=== PATIENT | male | born 1960 | race Caucasian/White ===

== ENCOUNTER → 2020-10-25 13:33 | Outpatient (BNVA) | payer OTHER, SELFPAY | PROVIDERS: PCP Internal Medicine; Referring Provider Internal Medicine; Visit Provider Physician Assistant ==

== ENCOUNTER 2022-05-29 15:53 | Outpatient (REF) | payer OTHER, SELFPAY | END 2022-05-29 15:54 | disposition home or self-care (01) | LOC: HO.SH 15:53 | PROVIDERS: Visit Provider Internal Medicine | DX: Z01.118 Encounter for examination of ears and hearing with other abnormal findings (principal); H90.3 Sensorineural hearing loss, bilateral | CPT/HCPCS: 92557 ==

== ENCOUNTER 2023-07-22 16:08 | Outpatient (REF) | payer OTHER, SELFPAY | END 2023-07-22 16:09 | disposition home or self-care (01) | LOC: HO.HHCL 16:08 | PROVIDERS: Visit Provider Internal Medicine | DX: Z13.89 Encounter for screening for other disorder (principal) ==

== ENCOUNTER 2024-04-07 08:07 | Outpatient (REF) | payer OTHER, SELFPAY ==
[2024-04-07 09:07] LABS: Alanine Aminotransferase 33 U/L (0-40); Albumin Level 4.2 g/dL (3.5-5.0); Alkaline Phosphatase 77 U/L (39-117); Anion Gap 10 (12-20); Aspartate Amino Transferase 31 U/L (5-37); Bilirubin Direct < 0.2 mg/dL (0.0-0.5); Bilirubin Total 0.2 mg/dL (0.0-1.0); Blood Urea Nitrogen 12 mg/dL (9-16); Calcium 9.4 mg/dL (8.4-10.2); Carbon Dioxide 27 mmol/L (22-29); Chloride 108 mmol/L (96-108); Cholesterol 212 mg/dL (<200); Estimated Glomerular Filt Rate > 60; Glucose Fasting 114 mg/dL (60-99); HDL Cholesterol 47 mg/dL (>40); LDL Cholesterol Calculated 151 mg/dL (<100); Potassium 5.4 mmol/L (3.3-5.1); Sodium 140 mmol/L (135-145); Total Protein 7.3 g/dL (6.5-8.0); Triglycerides 72 mg/dL (<150)
== END 2024-04-07 08:08 | disposition home or self-care (01) ==
LOC: HO.CHCLDS 08:07
PROVIDERS: Visit Provider Internal Medicine
DX: E78.00 Pure hypercholesterolemia, unspecified (principal); Z13.89 Encounter for screening for other disorder
CPT/HCPCS: 36415; 80048; 80061; 80076; 83090

== ENCOUNTER 2025-05-07 06:10 | Outpatient (REF) | payer OTHER, SELFPAY ==
--- OUTSIDE RECORDS SUMMARY | 2025-05-07 06:12 | XMS_ITS | Encounter Summary ---
Author Organization [employer] Address [address] [facility] [address] [place] [address] Care Team Providers Care Gunner'S Mate M Name Role Phone Zbigniew Adam MD Primary Care Provider [phone] Encounter Details Date Type Department Care Team (Late st Contact Info) Description 04/07/2024 Orders Only [facility]S [address] [place] [phone] Zbigniew Adam MD [address] [place], [place] [phone] Annual physical exam (Primary Dx); Primary hypertension Social History Tobacco Use Types Packs/Day Years Used Date Smoking Tobacco: Never Smokeless Tobacco: Never Alcohol Answer Date Recorded Q1: How often do you have a drink containing alc ohol? 3 04/10/2024 Q2: How many drinks containi ng alcohol do you have on a typical day when you are drinking? 2 04/10/2024 Q3: How often do you have six or more drinks on one occasion? 2 04/10/2024 Depression Answer Date Recorded Patient Health Questionnaire-9 Score 2 04/10/2024 Patient Health Questionnaire-9 Score 2 04/10/2024 Last PHQ-9: Questionnaire Data Not on file 1 06/10/2023 Housing Stability Answer Date Recorded What is your housing situation today? I have cody evans 03/29/[address] you li ve. Do you have problems with any of the following? None of the above 03/29/2023 Food Insecurity Answer Date Recorded Within the past 12 months, y ou worried that your food would run out before you got money to buy more: Never True 03/29/2023 Within the past 12 months,th e food you bought just didn't last and you didn't have enough money to get more: Never True 02/2023 Transportation Answer Date Recorded In the past 12 months, has l ack of transportation kept you from medical appts, meetings, work or from getting things needed for daily living? No 03/29/2023 Utilities Answer Date Recorded In the past 12 months, has t he electric, gas, oil or water company threatened to shut off services in your home? No 03/29/2023 Depression Answer Date Recorded Patient Health Questionnaire-2 Score 0 04/10/2024 Sex and Gender Information Value Date Recorded Sex Assigned at Male 03/19/2022 10:22 AM EDT Legal Sex Male 10:22 AM EDT Gender Identity Choose not to disclose 10:22 AM EDT Sexual Orientation Choose not to disclose 2021 10:22 AM EDT documented as of this encounter Plan of Treatment Scheduled Orders Name Type Priority Associated Diagnoses Orde r Schedule Vitamin D, 25-Hydroxy, Total, Immunoassay Lab Routine Annual physical exam Primary hypertension Expected: 04/07/2024 (Approximate), Expires: 04/07/2025 documented as of this encounter Visit Diagnoses Diagnosis Annual physical exam- Primary Routine general medical examination at a health care facility Primary hypertension Unspecified essential hypertension documented in this encounter Additional Health Concerns Assessment Noted Time PHQ-9 Depression Total Score: 1 04/08/20 23 4:21 PM EST documented as of this encounter Care Teams Gunner'S Mate M Relationship Specialty Start Date End Date Zbigniew Adam MD [address] [place] [id number] PCP - General Internal Medicine 02/26/12 documented as of this encounter
--- OUTSIDE RECORDS SUMMARY | 2025-05-07 06:12 | XMS_ITS | Encounter Summary ---
Author Organization [employer] Address [address] [place] [address] [address] [place] [id number] Care Team Providers Care Book Solicitor Name Role Phone Zbigniew Adam MD Primary Care Provider Encounter Details Date Type Department Care Team ([facility] st Contact Info) Description 08/13/[address] [facility] MED & PEDS [address] [facility] [place] [phone] Chio Krishnan LPN Social History Tobacco Use Types Packs/Day Years Used Date Smoking Tobacco: Never Assessed Sex and Gender Information Value Date Recorded Sex Assigned at Male 03/19/2022 10:22 AM EDT Legal Sex Male 10:22 AM EDT Gender Identity Choose not to disclose 10:22 AM EDT Sexual Orientation Choose not to disclose 2021 10:22 AM EDT documented as of this encounter Plan of Treatment Not on file documented as of this encounter Visit Diagnoses Not on filedocumented in this encounter Care Teams Book Solicitor Relationship Specialty Start Date End Date Zbigniew Adam MD [address] [place] [address] PCP - General Internal Medicine 02/26/12 documented as of this encounter
--- OUTSIDE RECORDS SUMMARY | 2025-05-07 06:12 | XMS_ITS | Clinical Summary ---
Author Organization [employer] Address [address] [facility] 7t [place] [address] Care Team Providers Care Lumber Estimator Name Role Phone Zbigniew Adam MD Primary Care Provider Medications losartan (Cozaar) 100 MG tablet TAKE 1 TABLET(100 MG) BY MOUTH EVERY DAY 90 tablet 3 08/13/2022 Active losartan (Cozaar) 100 MG tablet TAKE 1 TABLET BY MOUTH EVERY DAY 90 tablet 3 10/04/2023 Active losartan (Cozaar) 100 MG tablet TAKE 1 TABLET BY MOUTH EVERY DAY 90 tablet 3 12/01/2024 Active Active Problems Problem Noted Date Diagnosed Date Erectile dysfunction 09/10/2016 04/08/2023 Hypercholesterolemia 09/01/2015 04/08/2023 Hypertensive disorder 09/01/2015 04/08/2023 Family History Medical History Relation Name Comments Heart disease Mother Hypertension Mother Relation Name Status Comments Mother Social History Tobacco Use Types Packs/Day Years Used Date Smoking Tobacco: Never Smokeless Tobacco: Never Tobacco Cessation:Counseling Given: No Alcohol Answer Date Recorded Q1: How often [...] not to disclose 2021 10:22 AM EDT Last Filed Vital Signs Vital Sign Reading Time Taken Comments Blood Pressure 135/88 04/10/2024 2:12 PM EST Pulse 63 04/10/2024 2:12 PM EST Temperature 36.6 C (97.9 F) 04/10/2024 2:12 PM EST Respiratory Rate 20 04/10/2024 2:12 PM EST Oxygen Saturation 93% 04/10/2024 2:12 PM EST Inhaled Oxygen Concentration - - Weight 77.6 kg (171 lb) 04/10/2024 2:12 PM EST Height 172.1 cm (5' 7.75 ) 04/10/2024 2:12 PM ES T Body Mass Index 26.19 04/10/2024 2:12 PM EST Plan of Treatment Health Maintenance Due Date Last Done Comments CT Colonography 1961 Colonoscopy 1961 FIT 1961 HIV Screening 1961 Sigmoidoscopy 1961 Disability Screening 1961 Alcohol/Substance Use Screening 1973 Pneumococcal Vaccine: 50+ Years (1 of 1 - PCV) 12/16/2011 Zoster Vaccines (1 of 2) 12/16/2011 SDOH Screening 03/29/2024 03/29/2023 FOBT 05/02/2024 05/02/2023 COVID-19 Vaccine (1 - 2024-2 6 season) 2025 Influenza Vaccine (#1) 2025 Depression Screening 04/10/2025 04/10/2024, 04/10/2024 Tobacco Screening 04/10/2025 04/10/2024 DTaP/Tdap/Td Vaccines (2 - T d or Tdap) 08/31/2025 09/01/2015 Colorectal Cancer Screening 05/02/2026 FIT DNA/Cologuard 05/02/2026 05/02/2023 Lipid Panel 04/07/2029 04/07/2024, 08/10/2022, 02/20/2021 RSV Patients and Patients Aged 60 years or older (1 - 1-dose 75+ series) 2036 Hepatitis C Screening Completed 08/10/2022 HIB Vaccines Aged Out No longer eligi ble based on patient's age to complete this topic HPV Vaccines Aged Out No longer eligi ble based on patient's age to complete this topic Hepatitis A Vaccines Aged Out No long er eligible based on patient's age to complete this topic Hepatitis B Vaccines Aged Out No long er eligible based on patient's age to complete this topic IPV Vaccines Aged Out No longer eligi ble based on patient's age to complete this topic Meningococcal B Vaccine Aged Out No l onger eligible based on patient's age to complete this topic Meningococcal Vaccine Aged Out No berta shaun eligible based on patient's age to complete this topic RSV under 20 months Aged Out No longe r eligible based on patient's age to complete this topic Rotavirus Vaccines Aged Out No longer eligible based on patient's age to complete this topic Procedures Procedure Name Priority Date/Time Associated Diagnosis Comments LIPID PANEL, STANDARD Routine 04/07/2024 8:45 AM EST LAB COLOGUARD COLON CANCER SCREEN Routine 05/02/2023 12:45 PM EST Screening for colon cancer HEPATITIS C AB W/REFL TO HCV RNA, QN, PCR Routine 08/10/2022 8:32 AM EDT from Last 3 Months or Most Recently Relevant to Health Maintenance Results * (ABNORMAL) Lipid Panel, Standard (04/07/2024 8:45 AM EST) Triglycerides 72 <150 mg/dL [facility] Comment:Desirable Triglyceri de: less than 150 mg/dLBorderline High Triglyceride 150-199 mg/dLHigh Triglyceride: 200-499 mg/dLVery High Triglyceride: greater than or equal to 5OO mg/dL Cholesterol 212(H) <200 mg/dL [facility] Comment:Desirable Cholestero l: less than 200 mg/dLBorderline High Cholesterol: 200-239 mg/dLHigh Cholesterol: greater than 239 mg/dL LDL Cholesterol Calculated 151(H) <100 mg/dL [facility] Comment:Desirable LDL: less than 100 mg/dLNear Optimal/Above Optimal LDL: 110- 129 mg/dLBorderline High LDL: 130-159 mg/dLHigh LDL: 160-189 mg/dLVery High LDL: greater than or equal to 190 mg/dL HDL Cholesterol 47 >40 mg/dL [facility] Comment:Desirable HDL: great er than 40 mg/dL Note: This HDL assay may give artificially low results in patients with liver disease. 04/07/2024 8:45 AM EST 04/07/2024 8:45 AM EST us Zbigniew Adam MD LAB BLOOD ORDERABLES Final Result [facility] [address] [place] [phone] * Cologuard?? colon cancer screening (05/02/2023 12:45 PM EST) Cologuard Result Negative Negative 05/08/20 6:36 PM EST [facility] ([facility]) (CLIA #:[id number]) Comment: NEGATIVE TEST RESULT. A negative Cologuard result indicates a low likelihood that a colorectal cancer (CRC) or advanced adenoma (adenomatous polyps with more advanced pre-malignant features) is present. The chance that a person with a negative Cologuard test has a colorectal cancer is less than 1 in 1500 (negative predictive value >99.9%) or has an advanced adenoma is less than 5.3% (negative predictive value 94.7%). These data are based on a prospective cross-sectional study of 10,000 individuals at average risk for colorectal cancer who were screened with both Cologuard and colonoscopy. (Peng Montez et al, N Engl J Med 2014;370(14):8072-4598) The normal value (reference range) for this assay is negative. COLOGUARD RE-SCREENING RECOMMENDATION: Periodic colorectal cancer screening is an important part of preventive healthcare for asymptomatic individuals at average risk for colorectal cancer. Following a negative Cologuard result, the [place] [employer] and U.S. Multi-Society Task Force screening guidelines recommend a Cologuard re-screening interval of 3 years. References: [place] [employer] Guideline for Colorectal Cancer Screening: https://www.cancer.org/cancer/qetnp-vrmprg-dxwjsf/rwgggzjkw-anuvdjkgj-imqwhps/ac s-rec ommendations.html.; Darin DK, Humberto FLEMING, Jefferson DentK, Colorectal Cancer Screening: Recommendations for Physicians and Patients from the U.S. Multi-Society Task Force on Colorectal Cancer Screening , Am J Gastroenterology 2017; 112:2508-8481. TEST DESCRIPTION: Composite algorithmic analysis of stool DNA-biomarkers with hemoglobin immunoassay. Quantitative values of individual biomarkers are not reportable and are not associated with individual biomarker result reference ranges. Cologuard is intended for colorectal cancer screening of adults of either sex, 45 years or older, who are at average-risk for colorectal cancer (CRC). Cologuard has been approved for use by the U.S. FDA. The performance of Cologuard was established in a cross sectional study of average-risk adults aged 50-84. Cologuard performance in patients ages 45 to 49 years was estimated by sub-group analysis of near-age groups. Colonoscopies performed for a positive result may find as the most clinically significant lesion: colorectal cancer [4.0%], advanced adenoma (including sessile serrated polyps greater than or equal to 1cm diameter) [20%] or non- advanced adenoma [31%]; or no colorectal neoplasia [45%]. These estimates are derived from a prospective cross-sectional screening study of 10,000 individuals at average risk for colorectal cancer who were screened with both Cologuard and colonoscopy. (Peng Montez et al, N Engl J Med 2014;370(14):1656-7240.) Cologuard may produce a false negative or false positive result (no colorectal cancer or precancerous polyp present at colonoscopy follow up). A negative Cologuard test result does not guarantee the absence of CRC or advanced adenoma (pre-cancer). The current Cologuard screening interval is every 3 years. ([place] [employer] and U.S. Multi-Society Task Force). Cologuard performance data in a 10,000 patient pivotal study using colonoscopy as the reference method can be accessed at the following location: www.SoundRoadie/results. Additional description of the Cologuard test process, warnings and precautions can be found at www.[employer]iferd.[employer]. Stool specimen (specimen) 05/02/2023 12:45 PM EST 05/03/2023 7:44 PM EST us Zbigniew Adam MD LAB MOLECULAR DIAGNOSTICS O RDERABLES Final Result [facility] ([facility]) (CLIA #:[id number]) [address] [place] [address], * Hepatitis C Antibody with Reflex to HCV, RNA, Quantitative, Real-Time PCR (08/10/2022 8:32 AM EDT) Hepatitis C Antibody NON-REACT AIDA NON-REACT AIDA [facility] [place] JustGot Index 0.04 <1.00 [facility] [place] [facility] Comment: HCV antibody was non-reactive. There is no laboratory evidence of HCV infection. In most cases, no further action is required. However, if recent HCV exposure is suspected, a test for HCV RNA (test code 33239) is suggested. For additional information please refer to http://education.[employer]/faq/IEO76i4 (This link is being provided for informational/ educational purposes only.) 08/10/2022 8:32 AM EDT 08/10/2022 8:33 AM EDT Narrative [facility] - 08/13/2022 4:25 PM EDT FASTING:YES FASTING: YES Zbigniew Adam MD LAB BLOOD ORDERABLES Final Result [facility] [address], [place] [address] [facility] [address] [place] [phone] from Last 3 Months or Most Recently Relevant to Health Maintenance Insurance * Guarantor: Nii Stauffer Account Type Relation to Patient Date of Phone Billing Address Personal/Family Self [address] Care Teams Lumber Estimator Relationship Specialty Start Date End Date Zbigniew Adam MD [address] [facility] [place] PCP - General Internal Medicine 02/26/12
[2025-05-07 08:35] LABS: Anion Gap 11 (12-20); Blood Urea Nitrogen 25 mg/dL (9-16); Calcium 8.8 mg/dL (8.4-10.2); Carbon Dioxide 25 mmol/L (22-29); Chloride 109 mmol/L (96-108); Estimated Glomerular Filt Rate > 60; Potassium 4.3 mmol/L (3.3-5.1); Sodium 141 mmol/L (135-145)
[2025-05-07 08:45] LABS: PSA,Total (Free>4and<10) 0.42 ng/mL (0.00-4.00)
== END 2025-05-07 06:11 | disposition home or self-care (01) ==
LOC: HO.LAB 06:10
PROVIDERS: PCP Internal Medicine; Visit Provider Internal Medicine
DX: I10 Essential (primary) hypertension (principal); E87.5 Hyperkalemia; Z12.5 Encounter for screening for malignant neoplasm of prostate; Z13.1 Encounter for screening for diabetes mellitus; Z13.21 Encounter for screening for nutritional disorder
CPT/HCPCS: 36415; 80048; 82306; 83036; 83090; 84153; 84443; 86140